=== PATIENT | female | born 1980 | race Caucasian/White ===

== ENCOUNTER 2017-12-31 17:56 | Outpatient (CLI) | payer OTHER ==
[2017-12-31 18:50] LABS: ADD MAN DIFF? NO
[2017-12-31 18:52] LABS: WHITE BLOOD COUNT 9.8 10^3/ul (4.8-10.8)
[2017-12-31 18:52] LABS: BASOPHILS % 0.2 % (0.0-2.0); EOSINOPHILS % 0.4 % (0.0-7.0); HEMATOCRIT 34.1 % (37.0-47.0); HEMOGLOBIN 11.5 g/dl (12.0-16.0); LYMPHOCYTES # 1.2 10^3/ul (0.8-2.9); LYMPHOCYTES % 11.7 % (15.0-51.0); MEAN CORPUSCULAR HEMOGLOBIN 26.3 pg (29.0-33.0); MEAN CORPUSCULAR HGB CONC 33.7 g/dl (32.0-37.0); MEAN PLATELET VOLUME 11.3 fl (7.4-10.4); MONOCYTE # 0.6 10^3/ul (0.3-0.9); NEUTROPHILS % 81.1 % (39.0-77.0); PLATELET COUNT 164 10^3/UL (140-415); RED BLOOD COUNT 4.37 10^6/ul (4.20-5.40); RED CELL DISTRIBUTION WIDTH 13.5 % (11.5-14.5)
== END 2017-12-31 22:39 | disposition home or self-care (01) ==
LOC: OBT 17:56 → L-D 17:58
DX: O44.02 Complete placenta previa NOS or without hemorrhage, second trimester (principal); Z3A.20 20 weeks gestation of pregnancy; O9A.212 Injury, poisoning and certain other consequences of external causes complicating pregnancy, second trimester; V43.52XA Car driver injured in collision with other type car in traffic accident, initial encounter; Y92.410 Unspecified street and highway as the place of occurrence of the external cause
CPT/HCPCS: 76817; 76818; 85025; 85384; 85460; 86850; 86900; 86901

== ENCOUNTER 2018-01-24 17:24 | Outpatient (CLI) | payer OTHER | END 2018-01-24 20:38 | disposition home or self-care (01) | LOC: OBT 17:24 → L-D 17:25 → OBT 20:38 | DX: O36.8130 Decreased fetal movements, third trimester, not applicable or unspecified (principal); O26.893 Other specified pregnancy related conditions, third trimester; H66.92 Otitis media, unspecified, left ear; Z3A.30 30 weeks gestation of pregnancy; O09.523 Supervision of elderly multigravida, third trimester | CPT/HCPCS: 76817; 76818 ==

== ENCOUNTER 2018-01-24 20:52 | Emergency (ER) | payer OTHER | END 2018-01-24 22:12 | disposition home or self-care (01) | LOC: FTE 20:52 | DX: H92.02 Otalgia, left ear (principal) | CPT/HCPCS: 99283; Z7502 ==

== ENCOUNTER 2018-04-16 08:29 | Inpatient (IN) | payer OTHER ==
[2018-04-16] MEDS ORDERED: CARBOPROST 250 MCG INJ IM (09:00)
[2018-04-16] MEDS ORDERED: METHYLERGONOVINE 0.2 MG INJ IM (09:00)
[2018-04-16] MEDS ORDERED: OXYTOCIN 30 UNITS/LR 500 ML IV ×2 (09:00)
[2018-04-16] MEDS ORDERED: LIDOCAINE 1% (MPF) 30 ML INJ INJ (09:00)
[2018-04-16] MEDS ORDERED: IBUPROFEN 600 MG TAB PO (09:00)
[2018-04-16] MEDS ORDERED: MISOPROSTOL 200 MCG TAB PR (09:00)
[2018-04-16 10:48] LABS: ADD MAN DIFF? NO
[2018-04-16 10:56] LABS: WHITE BLOOD COUNT 8.4 10^3/ul (4.8-10.8)
[2018-04-16 10:56] LABS: BASOPHILS % 0.4 % (0.0-2.0); EOSINOPHILS # 0.1 10^3/ul (0.0-0.5); EOSINOPHILS % 0.8 % (0.0-7.0); HEMATOCRIT 37.7 % (37.0-47.0); HEMOGLOBIN 12.3 g/dl (12.0-16.0); LYMPHOCYTES # 1.6 10^3/ul (0.8-2.9); LYMPHOCYTES % 19.1 % (15.0-51.0); MEAN CORPUSCULAR HEMOGLOBIN 25.5 pg (29.0-33.0); MEAN CORPUSCULAR HGB CONC 32.6 g/dl (32.0-37.0); MEAN CORPUSCULAR VOLUME 78.2 fl (82.0-101.0); MEAN PLATELET VOLUME 12.1 fl (7.4-10.4); MONOCYTE # 0.6 10^3/ul (0.3-0.9); MONOCYTES % 6.6 % (0.0-11.0); NEUTROPHIL # 6.1 10^3/ul (1.6-7.5); NEUTROPHILS % 72.5 % (39.0-77.0); PLATELET COUNT 159 10^3/UL (140-415); RED BLOOD COUNT 4.82 10^6/ul (4.20-5.40); RED CELL DISTRIBUTION WIDTH 14.3 % (11.5-14.5)
[2018-04-16] MEDS ORDERED: MISOPROSTOL 25 MCG CAPSULE PO (11:00)
[2018-04-16 11:14] LABS: INR 0.88; PT RATIO 0.9
[2018-04-16 11:15] LABS: PARTIAL THROMBOPLASTIN TIME 27.3 Sec (25.0-35.0)
[2018-04-16] MEDS: MISOPROSTOL 25 MCG CAPSULE PO ×4 (11:27→23:00)
[2018-04-16] MEDS: LACTATED RINGER'S 1,000 ML IV* ×3 (11:55→23:51)
[2018-04-16] MEDS ORDERED: MISOPROSTOL 100 MCG TAB VAG (13:00)
[2018-04-16 16:53] LABS: HEPATITIS B SURFACE ANTIGEN NEGATIVE (NEGATIVE)
[2018-04-16 20:30] LABS: ADD MAN DIFF? NO
[2018-04-16 20:32] LABS: BASOPHILS % 0.3 % (0.0-2.0); EOSINOPHILS % 0.5 % (0.0-7.0); HEMATOCRIT 37.3 % (37.0-47.0); HEMOGLOBIN 12.3 g/dl (12.0-16.0); LYMPHOCYTES # 1.7 10^3/ul (0.8-2.9); LYMPHOCYTES % 19.3 % (15.0-51.0); MEAN CORPUSCULAR VOLUME 78.9 fl (82.0-101.0); MEAN PLATELET VOLUME 11.6 fl (7.4-10.4); MONOCYTE # 0.7 10^3/ul (0.3-0.9); MONOCYTES % 7.6 % (0.0-11.0); NEUTROPHIL # 6.4 10^3/ul (1.6-7.5); NEUTROPHILS % 71.8 % (39.0-77.0); PLATELET COUNT 157 10^3/UL (140-415); RED BLOOD COUNT 4.73 10^6/ul (4.20-5.40); RED CELL DISTRIBUTION WIDTH 14.2 % (11.5-14.5)
[2018-04-16 20:32] LABS: WHITE BLOOD COUNT 8.8 10^3/ul (4.8-10.8)
[2018-04-16 20:49] LABS: ALANINE AMINOTRANSFERASE 23 IU/L (13-69); ALBUMIN 3.4 g/dl (3.3-4.9); ALBUMIN/GLOBULIN RATIO 0.91; ALKALINE PHOSPHATASE 188 IU/L (42-121); ANION GAP 11 (8-16); ASPARTATE AMINO TRANSFERASE 14 IU/L (15-46); BILIRUBIN,INDIRECT 0.4 mg/dl (0-1.1); BILIRUBIN,TOTAL 0.4 mg/dl (0.2-1.3); BLOOD UREA NITROGEN 6 mg/dl (7-20); CALCIUM 8.9 mg/dl (8.4-10.2); CARBON DIOXIDE 20 mmol/L (21-31); CHLORIDE 110 mmol/L (97-110); CREATININE 0.47 mg/dl (0.44-1.00); GLUCOSE 84 mg/dl (70-220); POTASSIUM 3.9 mmol/L (3.5-5.1); SODIUM 137 mmol/L (135-144); TOTAL PROTEIN 7.1 g/dl (6.1-8.1); URIC ACID 3.8 mg/dl (3.1-7.9)
[2018-04-16 20:51] LABS: INR 0.96; PROTIME 12.9 Sec (11.9-14.9)
[2018-04-16 20:57] LABS: PARTIAL THROMBOPLASTIN TIME 26.9 Sec (25.0-35.0)
[2018-04-16 21:15] LABS: ADD UMIC YES; UR ASCORBIC ACID NEGATIVE (NEGATIVE); UR BACTERIA FEW /HPF (NONE SEEN); UR BILIRUBIN (Dip) NEGATIVE (NEGATIVE); UR BLOOD (Dip) 2+ mg/dL (NEGATIVE); UR BUDDING YEAST FEW /HPF (NONE SEEN); UR CLARITY CLEAR (CLEAR); UR COLOR STRAW (YELLOW); UR GLUCOSE (Dip) NEGATIVE (NEGATIVE); UR KETONES (Dip) NEGATIVE (NEGATIVE); UR LEUKOCYTE ESTERASE (Dip) NEGATIVE Leu/ul (NEGATIVE); UR NITRITE (Dip) NEGATIVE (NEGATIVE); UR RBC 2 /HPF (0-5); UR SPECIFIC GRAVITY (Dip) 1.003 (1.003-1.030); UR TOTAL PROTEIN (Dip) NEGATIVE (NEGATIVE); UR UROBILINOGEN (Dip) NEGATIVE (NEGATIVE); UR WBC 2 /HPF (0-5)
[2018-04-16 21:57] LABS: RAPID PLASMA REAGIN NONREACTIVE (NR)
[2018-04-17] MEDS: MISOPROSTOL 25 MCG CAPSULE PO ×3 (01:06→09:00)
[2018-04-17] MEDS: LACTATED RINGER'S 1,000 ML IV* ×5 (07:32→23:18)
[2018-04-17] MEDS: OXYTOCIN 30 UNITS/LR 500 ML IV ×2 (11:29→20:52)
[2018-04-17] MEDS: BUTORPHANOL 2 MG INJ IV (15:06)
[2018-04-17] MEDS ORDERED: DEXTROSE 5%-LR 1,000 ML IV (23:18)
[2018-04-17] MEDS ORDERED: OXYCODONE/ASPIRIN (4.88/325) TAB PO (23:30)
[2018-04-17] MEDS ORDERED: SENNA/DOCUSATE NA (8.6MG/50MG) TAB PO (23:30)
[2018-04-17] MEDS ORDERED: ACETAMINOPHEN 325 MG TAB PO (23:30)
[2018-04-17] MEDS ORDERED: DIPHENHYDRAMINE 50 MG INJ IV (23:30)
[2018-04-17] MEDS ORDERED: ONDANSETRON 4 MG INJ IV (23:30)
[2018-04-17] MEDS ORDERED: CARBOPROST 250 MCG INJ IM (23:30)
[2018-04-17] MEDS ORDERED: ZOLPIDEM 5 MG TAB PO (23:30)
[2018-04-17] MEDS ORDERED: DIBUCAINE 1% 30 GM OINT PR (23:30)
[2018-04-17] MEDS ORDERED: OXYTOCIN 30 UNITS/LR 500 ML IV (23:30)
[2018-04-17] MEDS ORDERED: MISOPROSTOL 200 MCG TAB PR (23:30)
[2018-04-17] MEDS ORDERED: METHYLERGONOVINE 0.2 MG INJ IM (23:30)
[2018-04-18] MEDS: IBUPROFEN 600 MG TAB PO ×4 (00:19→17:59)
[2018-04-18] MEDS: BENZOCAINE 20% 56 ML SPRAY TOP (00:20)
[2018-04-18] MEDS: WITCH HAZEL/GLYCERIN PAD PR (00:20)
[2018-04-18] MEDS: LANOLIN 7 GM TUBE TOP (00:21)
[2018-04-18] MEDS: LACTATED RINGER'S 1,000 ML IV* ×3 (06:29→23:18)
[2018-04-18 08:44] LABS: ADD MAN DIFF? NO
[2018-04-18 08:52] LABS: WHITE BLOOD COUNT 10.6 10^3/ul (4.8-10.8)
[2018-04-18 08:52] LABS: BASOPHILS % 0.2 % (0.0-2.0); EOSINOPHILS % 0.4 % (0.0-7.0); HEMATOCRIT 37.4 % (37.0-47.0); HEMOGLOBIN 11.9 g/dl (12.0-16.0); LYMPHOCYTES # 1.9 10^3/ul (0.8-2.9); LYMPHOCYTES % 18.2 % (15.0-51.0); MEAN CORPUSCULAR HEMOGLOBIN 25.3 pg (29.0-33.0); MEAN CORPUSCULAR HGB CONC 31.8 g/dl (32.0-37.0); MEAN CORPUSCULAR VOLUME 79.4 fl (82.0-101.0); MEAN PLATELET VOLUME 11.9 fl (7.4-10.4); MONOCYTE # 0.9 10^3/ul (0.3-0.9); MONOCYTES % 8.5 % (0.0-11.0); NEUTROPHIL # 7.7 10^3/ul (1.6-7.5); NEUTROPHILS % 72.2 % (39.0-77.0); PLATELET COUNT 149 10^3/UL (140-415); RED BLOOD COUNT 4.71 10^6/ul (4.20-5.40); RED CELL DISTRIBUTION WIDTH 14.1 % (11.5-14.5)
[2018-04-19] MEDS: IBUPROFEN 600 MG TAB PO ×3 (00:12→11:46)
[2018-04-19] MEDS: LACTATED RINGER'S 1,000 ML IV* (06:45)
[2018-04-19] MEDS: DIPHTH/TET/ACEL PERTUSS (ADULT) 0.5 ML VIAL IM* (08:15)
[2018-04-19] MEDS ORDERED: MEASLES,MUMPS,RUBELLA VACCINE INJ SC* (09:00)
== END 2018-04-19 14:37 | disposition home or self-care (01) | DRG 775 ==
LOC: L-D 08:29 → PP1 04-17 23:34
PROVIDERS: Obstetrics & Gynecology
PROC: 10D07Z6 Extraction of Products of Conception, Vacuum, Via Natural or Artificial Opening (ICD-10-PCS; principal; 2018-04-17)
PROC: 0W8NXZZ Division of Female Perineum, External Approach (ICD-10-PCS; 2018-04-17)
DX: O76 Abnormality in fetal heart rate and rhythm complicating labor and delivery (principal); O69.81X0 Labor and delivery complicated by cord around neck, without compression, not applicable or unspecified; O48.0 Post-term pregnancy; Z3A.40 40 weeks gestation of pregnancy; Z37.0 Single live birth
CPT/HCPCS: 76815; 80053; 81001; 84560; 85025; 85384; 85610; 85730; 86592; 86850; 86900; 86901; 87340; 99464